=== PATIENT | male | born 1985 | race Caucasian/White ===

== ENCOUNTER 2021-02-24 15:03 | Emergency (ER) | payer OTHER ==
[2021-02-24] MEDS ORDERED: Sodium Chloride 0.9% 10 ML Syringe FLUSH PRN (15:25)
[2021-02-24] MEDS ORDERED: Sodium Chloride 0.9% 2.5 ML Syringe FLUSH PRN (15:25)
[2021-02-24] MEDS ORDERED: Lactated Ringers 1,000 ML IV ONE (15:27)
[2021-02-24 15:46] LABS: BLOOD UREA NITROGEN,BUN 16 mg/dL (7.0-18.0); CARBON DIOXIDE,CO2 30.2 mmol/L (21.0-32.0); CHLORIDE,CL 101 mmol/L (98-107); GLUCOSE RANDOM 93 mg/dL (74-106); SODIUM,NA 139 mmol/L (136-148)
--- NOTE | 2021-02-24 16:01 | CR ---
INDICATION : Dizzy. Findings: An AP view of the chest was obtained. The cardiac silhouette and pulmonary vasculature are within normal limits. The lungs are clear bilaterally. IMPRESSION: No evidence of acute pulmonary disease. Dictated by Juan Cohn MD @ 02/24/2021 3:59:33 PM (Electronically Signed)
--- NOTE | 2021-02-24 16:29 | EDM.PDOC ---
ED HPI GENERAL MEDICAL PROBLEM - General Chief Complaint: Syncope Stated Complaint: SOB Time Seen by Provider: 02/24/21 15:10 - History of Present Illness INITIAL COMMENTS - FREE TEXT/NARRATIVE: HISTORY AND PHYSICAL: History of present illness: This is a 35-year-old gentleman who presents ER today secondary to a near syncopal episode with dizziness that occurred earlier today while at work. Patient reports that he was sleeping at work and got up to start working. Patient reports after getting up he started feeling weak and dizzy and almost fell to the ground. Patient denies any recent fevers, shakes, chills, nausea, vomiting, diarrhea. Patient reports he had some URI symptoms with nasal congestion, rhinorrhea and slight cough. Patient has any loss of taste or smell. Patient has not had Covid in the past has not had his vaccine. Patient denies any chest pain, pain rating to his arms or back, diaphoresis associated with the symptoms. Patient has any history of hypertension, diabetes, liver, lung, kidney problems. Patient has any history of tobacco, alcohol, drugs. Review of systems: As per history of present illness and below otherwise all systems reviewed and negative. Past medical history: As per history of present illness and as reviewed below otherwise noncontributory. Surgical history: As per history of present illness and as reviewed below otherwise noncontributory. Social history: No reported history of drug abuse. Family history: As per history of present illness and as reviewed below otherwise noncontributory. Physical exam: This patient was seen and evaluated during the 2019 SARS-CoV-2 novel coronavirus pandemic period. Community viral transmission is ongoing at time of this encounter and the emergency department is operating under pandemic response procedures. Constitutional: Patient is oriented to person, place, and time. Appears well- developed and well-nourished. No distress. HEENT: Moist mucous membranes Head: Normocephalic and atraumatic Eyes: Right eye exhibits no discharge. Left eye exhibits no discharge. No scleral icterus Neck: Normal range of motion. No tracheal deviation present. Cardiovascular: Normal rate and regular rhythm. Pulmonary: Effort normal, no respiratory distress. Abdominal: No distention Musculoskeletal: Normal range of motion Neurologic: Alert and oriented to person, place and time. Skin: [place], warm and dry. Psychiatric: Normal mood and affect. Behavior is normal. Judgment and thought content normal. Nursing note and vital signs have been reviewed Diagnostics: February 24, 2021 3:09 PM EKG: As interpreted by ER physician: Javi: Nonspecific ST-T wave abnormalities Normal axis No evidence of ST elevation ND Normal sinus rhythm heart rate of 62 Chest Xray: Normal cardiac silhouette No infiltrates or effusions identified. No PTX No evidence of acute bony fracture. As interpreted by ER MD: Javi CBC, CMP, troponin within normal limits Covid positive Therapeutics: LR x1 L Assessment and plan: 35-year-old healthy gentleman with no significant past medical history who presents ER today with a near syncopal episode and Covid-like symptoms. Patient's labs are all within normal limits. Patient's EKG and troponin are unremarkable. Patient's Covid test is positive. I have discussed with the patient the results of the test and the need to follow-up with his family doctor as well as with [facility]. Patient understands that he will need to isolate. Patient pulse ox is currently 99% on room air and does not have an indication for admission at this time. Reassessment at the time of disposition demonstrates that the patient is in no acute distress. The patient has remained stable throughout the entire ED visit and is without objective evidence for acute process requiring urgent intervention or hospitalization. The patient is stable for discharge, counseling is provided as documented above, discussed symptomatic treatment and specific conditions for return. I have spoken with the patient/caregiver and discussed todays findings, in addition to providing specific details for the plan of care. Questions are answered and there is agreement with the plan. Definitive disposition and diagnosis as appropriate pending reevaluation and review of above. 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) - Past Surgical History HEENT Surgical History: Reports: Myringotomy w Tube(s) Social & Family History - Family History Family Medical History: No Pertinent Family History - Tobacco Use Tobacco Use Status *Q: Former Tobacco User Years of Tobacco use: 5 Packs/Tins Daily: 1 Used Tobacco, but Quit: Yes Month/Year Tobacco Last Used: 03/2010 - Caffeine Use Caffeine Use: Reports: Coffee, Energy Drinks, Soda, Tea - Recreational Drug Use Recreational Drug Use: No ED ROS GENERAL - Review of Systems Review Of Systems: See Below ED EXAM, GENERAL - Physical Exam Exam: See Below Course - Vital Signs Last Recorded V/S: Last Vital Signs Temp 97.5 F 02/24/21 15:06 Pulse 61 02/24/21 16:48 Resp 17 02/24/21 16:48 BP 112/68 02/24/21 16:48 Pulse Ox 98 02/24/21 16:48 - Orders/Labs/Meds Orders: Active Orders 24 hr Category Date Time Status Saline Lock Insert [OM.PC] Stat Oth 02/24/21 15:26 Ordered Labs: Laboratory Tests 02/24/21 02/24/21 02/24/21 Range/Units 15:11 15:11 15:13 WBC 6.32 (4.0-11.0) K/uL RBC 5.64 (4.50-5.90) M/uL Hgb 18.3 H (13.0-17.0) g/dL Hct 51.5 H (38.0-50.0) % MCV 91.3 (80.0-98.0) fL MCH 32.4 H (27.0-32.0) pg MCHC 35.5 (31.0-37.0) g/dL RDW Std Deviation 38.1 (28.0-62.0) fl RDW Coeff of Woo 11 (11.0-15.0) % Plt Count 173 (150-400) K/uL MPV 10.30 (7.40-12.00) fL Neut % (Auto) 62.5 (48.0-80.0) % Lymph % (Auto) 23.6 (16.0-40.0) % [place] % (Auto) 12.7 (0.0-15.0) % Eos % (Auto) 0.9 (0.0-7.0) % Baso % (Auto) 0.3 (0.0-1.5) % Neut # (Auto) 4.0 (1.4-5.7) K/uL Lymph # (Auto) 1.5 (0.6-2.4) K/uL [place] # (Auto) 0.8 (0.0-0.8) K/uL Eos # (Auto) 0.1 (0.0-0.7) K/uL Baso # (Auto) 0.0 (0.0-0.1) K/uL Nucleated RBC % 0.0 /100WBC Nucleated RBCs # 0 K/uL Sodium 139 (136-148) mmol/L Potassium 4.0 (3.5-5.1) mmol/L Chloride 101 (98-107) mmol/L Carbon Dioxide 30.2 (21.0-32.0) mmol/L BUN 16 (7.0-18.0) mg/dL Creatinine 1.0 (0.8-1.3) mg/dL Est Cr Clr Drug Dosing 113.17 mL/min Estimated GFR (MDRD) > 60.0 ml/min Glucose 93 (74-106) mg/dL Calcium 9.2 (8.5-10.1) mg/dL Total Bilirubin 0.5 (0.2-1.0) mg/dL AST 28 (15-37) IU/L ALT 41 (14-63) IU/L Alkaline Phosphatase 91 (46-116) U/L Troponin I < 0.050 (0.000-0.056) ng/mL Total Protein 8.8 H (6.4-8.2) g/dL Albumin 4.4 (3.4-5.0) g/dL Globulin 4.4 H (2.6-4.0) g/dL Albumin/Globulin Ratio 1.0 (0.9-1.6) SARS-CoV-2 RNA (JORDI) POSITIVE H (NEGATIVE) Meds: Medications Discontinued Medications Generic Name Dose Route Start Last Admin Trade Name Freq PRN Reason Stop Dose Admin Lactated Ringer's 1,000 mls @ 999 mls/hr 02/24/21 15:27 02/24/21 15:39 Ringers, Lactated IV 02/24/21 16:27 999 mls/hr .BOLUS ONE Administration Sodium Chloride 10 ml 02/24/21 15:25 02/24/21 15:41 Sodium Chloride 0.9% 10 Ml Syringe FLUSH 10 ml ASDIRECTED PRN Administration Keep Vein Open Sodium Chloride 2.5 ml 02/24/21 15:25 02/24/21 15:41 Sodium Chloride 0.9% 2.5 Ml Syringe FLUSH 2.5 ml ASDIRECTED PRN Administration Keep Vein Open Departure - Departure Time of Disposition: 16:29 Disposition: Home, Self-Care 01 Condition: Good Clinical Impression: COVID-19 virus infection, Near syncope - Discharge Information Instructions: COVID-19 Frequently Asked Questions, 10 Things You Can Do to Manage Your COVID-19 Symptoms at Home - [facility] (10/06/2020), Near-Syncope, [id number] Referrals: PCP,None [Primary Care Provider] - Forms: ED Department Discharge Additional Instructions: You were seen and evaluated in the ER today secondary to nearly passing out today while at work. You also have some signs and symptoms of mild Covid infection. Your blood test were all within normal limits including a normal EKG, chest x-ray and blood test. Your Covid test however did come back positive. 1. Your COVID-19 screening is positive. That means you do have the coronavirus and you are considered contagious. Your vital signs and oxygen saturation are well enough that you were able to monitor your symptoms at home. Continue to monitor for trouble breathing, new confusion or inability to arouse, bluish lips or face or any of the other symptoms we discussed -if this occurs please return to the emergency room. 2. Please self quarantine over the next 10 days. Inform any persons that you have been in contact with since you started becoming symptomatic that you have tested positive; they should be made aware and take the appropriate steps as needed. 3. You can take NyQuil during the evening to help get a restful night sleep. May alternate Tylenol and ibuprofen as needed for pain and fever management. 4. The [facility] department will be calling you and following up with you. The [place] COVID 19 Hotline phone number , They are open Friday - Friday 7am - 7pm. Follow up with your primary care provider for re-evaluation and re-testing after the 10 day quarantine and discuss when you should be seen. The following information is given to patients seen in the emergency department who are being discharged to home. This information is to outline your options for follow-up care. We provide all patients seen in our emergency department with a follow-up referral. The need for follow-up, as well as the timing and circumstances, are variable depending upon the specifics of your emergency department visit. If you don't have a primary care physician on staff, we will provide you with a referral. We always advise you to contact your personal physician following an emergency department visit to inform them of the circumstance of the visit and for follow-up with them and/or the need for any referrals to a consulting specialist. The emergency department will also refer you to a specialist when appropriate. This referral assures that you have the opportunity for follow-up care with a specialist. All of these measure are taken in an effort to provide you with optimal care, which includes your follow-up. Under all circumstances we always encourage you to contact your private physician who remains a resource for coordinating your care. When calling for follow-up care, please make the office aware that this follow-up is from your recent emergency room visit. If for any reason you are refused follow-up, please contact the [facility] Emergency Department at and asked to speak to the emergency department charge nurse. [facility] [address] [place] [address] [address] Sepsis Event Note (ED) - Evaluation Sepsis Screening Result: No Definite Risk - My Orders Last 24 Hours: My Active Orders 02/24/21 15:26 Saline Lock Insert [OM.PC] Stat - Assessment/Plan Last 24 Hours: My Active Orders 02/24/21 15:26 Saline Lock Insert [OM.PC] Stat
== END 2021-02-24 16:49 | disposition home or self-care (01) ==
LOC: MW.ED 15:03
DX: R55 Syncope and collapse (principal); U07.1 COVID-19; Z87.891 Personal history of nicotine dependence
CPT/HCPCS: 36415; 71045; 80053; 84484; 85025; 87635; 93005; 99285; J7120; U0002